=== PATIENT | male | born 1995 | race African-American/Black ===

== ENCOUNTER 2024-08-04 23:20 | Emergency (ER) | payer OTHER ==
[2024-08-04] MEDS: Albuterol/Ipratropium 3.0-0.5 MG/3 ML Neb Soln NEB ONE (23:45)
[2024-08-05] MEDS: Dexamethasone 4 MG/ML SDV IM ONE (00:05)
[2024-08-05] MEDS: Ketorolac 30 MG/ML SDV ONE (00:06)
[2024-08-05] MEDS: Ketorolac 30 MG/ML SDV IM ONE (00:06)
[2024-08-05 03:13] VITALS: BP 143/84; PULSE 83
== END 2024-08-05 00:15 | disposition home or self-care (01) ==
LOC: VM.ED 23:20
DX: J21.9 Acute bronchiolitis, unspecified (principal); G43.009 Migraine without aura, not intractable, without status migrainosus; R06.02 Shortness of breath; R06.2 Wheezing; Z79.899 Other long term (current) drug therapy
CPT/HCPCS: 94640; 96372; 99284; J1100; J1885; J7620-GY

== ENCOUNTER 2024-08-12 03:28 | Emergency (ER) | payer OTHER ==
[2024-08-12] MEDS: Albuterol/Ipratropium 3.0-0.5 MG/3 ML Neb Soln NEB ONE (04:05)
[2024-08-12] MEDS ORDERED: predniSONE 20 MG Tab ONE (04:11)
[2024-08-12] MEDS: predniSONE 20 MG Tab PO SCH (04:15)
== END 2024-08-12 04:50 | disposition home or self-care (01) ==
LOC: VM.ED 03:28
DX: R06.2 Wheezing (principal); Z88.5 Allergy status to narcotic agent
CPT/HCPCS: 94640; 99284; J7512; J7620-GY